=== PATIENT | male | born 2000 | race Caucasian/White ===

== ENCOUNTER 2022-03-10 15:26 | Emergency (ER) | payer OTHER ==
[2022-03-10] MEDS ORDERED: HYDROCODON-ACE1 EAC4 PO ×2 (18:19→18:34)
[2022-03-11] MEDS ORDERED: PERCOCET 5-3251 EACH PO (14:10)
[2022-03-11] MEDS ORDERED: IBU800 MG PO (14:11)
[2022-03-13] MEDS ORDERED: HYDROCODON-ACE1 EAC4 PO (07:54)
[2022-03-13] MEDS ORDERED: ENDOCET 7.5-321 EACH PO (16:49)
== END 2022-03-10 18:54 | disposition home or self-care (01) ==
LOC: ER1 15:26
DX: S42.021A Displaced fracture of shaft of right clavicle, initial encounter for closed fracture (principal); S80.212A Abrasion, left knee, initial encounter; S10.91XA Abrasion of unspecified part of neck, initial encounter; Z88.2 Allergy status to sulfonamides; V86.56XA Driver of dirt bike or motor/cross bike injured in nontraffic accident, initial encounter
CPT/HCPCS: 71045; 72125; 73030; 73562; 99284